=== PATIENT | male | born 1960 | race Caucasian/White ===

== ENCOUNTER 2023-03-18 07:40 | Emergency (ER) | payer BC ==
[~2023-03-18] VITALS: Ht 167.6 cm; Wt 102.1 kg
[2023-03-18 07:40] VITALS: BP 110/70; PULSE 89; RESP 15; TEMP 98.6; O2SAT 92
[2023-03-18] MEDS ORDERED: PRED20TA5 PO (09:37)
[2023-03-18] MEDS ORDERED: EPIN1KIT31 IM (09:37)
[2023-03-18 10:11] VITALS: BP 110/70; PULSE 90; RESP 16; TEMP 97.6; O2SAT 93
== END 2023-03-18 10:12 | disposition home or self-care (01) ==
LOC: MED 07:40
DX: R06.02 Shortness of breath (principal); T63.441A Toxic effect of venom of bees, accidental (unintentional), initial encounter; E11.9 Type 2 diabetes mellitus without complications; Z79.4 Long term (current) use of insulin; Z79.899 Other long term (current) drug therapy; Y92.89 Other specified places as the place of occurrence of the external cause
CPT/HCPCS: 99282